=== PATIENT | female | born 1950 | race Caucasian/White ===

== ENCOUNTER → 2017-03-22 | Outpatient (REF) | payer OTHER ==
[~2017-03-22] MED LIST: HYDR25TAB PO; LEVO25TA34 PO; SIMV40TA2 PO; VALS1TAB46 PO
== END ==
LOC: M LAB REF 16:36
PROVIDERS: ATTEND Otolaryngology
DX: D48.5 Neoplasm of uncertain behavior of skin (principal)

== ENCOUNTER → 2017-05-09 | Outpatient (CLI) | payer OTHER ==
[2017-05-09 13:31] LABS: MEAN CORPUSCULAR HEMOGLOBIN 33.7 pg (27.0-33.0); MEAN CORPUSCULAR HGB CONC 33.1 g/dl (32.0-36.5); MEAN CORPUSCULAR VOLUME 101.8 fl (80.0-96.0); RED CELL DISTRIBUTION WIDTH 12.2 % (11.5-14.5); WHITE BLOOD COUNT 6.4 K/mm3 (4.0-10.0)
[2017-05-09 13:33] LABS: ALBUMIN 3.8 GM/DL (3.2-5.2); ALBUMIN/GLOBULIN RATIO 1.03 (1.00-1.93); ALKALINE PHOSPHATASE 68 U/L (45-117); ALT/SGPT 29 U/L (12-78); ANION GAP 8 MEQ/L (8-16); AST/SGOT 23 U/L (15-37); BILIRUBIN,TOTAL 0.5 MG/DL (0.2-1.0); BLOOD UREA NITROGEN 17 MG/DL (7-18); CALCIUM LEVEL 9.5 MG/DL (8.8-10.2); CARBON DIOXIDE LEVEL 27 MEQ/L (21-32); CHLORIDE LEVEL 103 MEQ/L (98-107); CHOLESTEROL LEVEL 159 MG/DL (<200); CREATININE FOR GFR 0.87 MG/DL (0.55-1.02); FREE T4 1.01 NG/DL (0.76-1.46); GLOMERULAR FILTRATION RATE > 60.0 (>45); GLUCOSE, FASTING 125 MG/DL (80-110); POTASSIUM SERUM 4.6 MEQ/L (3.5-5.1); SODIUM LEVEL 138 MEQ/L (136-145); TOTAL PROTEIN 7.5 GM/DL (6.4-8.2); TRIGLYCERIDES LEVEL 134 MG/DL (<150)
== END ==
LOC: M SMT 08:00
PROVIDERS: ATTEND Family Medicine
DX: E03.9 Hypothyroidism, unspecified (principal); E11.9 Type 2 diabetes mellitus without complications

== ENCOUNTER → 2017-05-31 | Outpatient (CLI) | payer OTHER ==
--- NOTE | 2017-05-31 11:13 | REPMRS ---
Patient History The patient states she had a clinical breast exam in 05/27 Patient is postmenopausal. Family history of breast cancer in sister at age 50 or over and breast cancer in sister at age 60. Reductions of both breasts, 1985. Took hormonal contraceptives for 6 years. Took estrogen for 30 years. Digital Woman Screen Mammo: May 31, 2017 - Exam #: [id number] Bilateral CC and MLO view(s) were taken. Technologist: Brenda Joel, Technologist Prior study comparison: May 30, 2016, digital woman screen mammo performed at [facility]. May 12, 2015, bilateral digital mammo screening bilat, performed at [facility]. May 04, 2014, bilateral bilat screen digital mammo, performed at [facility] ([facility] FINDINGS: There are scattered fibroglandular densities. There is a moderate amount of residual fibroglandular tissue which is fairly symmetric. There is no interval development of dominant mass, architectural distortion, or clustered microcalcification typical of malignancy. There has been no change in the appearance of the mammogram from the prior studies. ASSESSMENT: BI-RADS/ACR category 1 mammogram. Negative. Recommendation Routine screening mammogram of both breasts in 1 year (for women over age 40). This mammogram was interpreted with the aid of an FDA-approved computer-aided dectection system. Electronically Signed By: Carroll Street MD 05/31/17 [id number]
== END ==
LOC: M WHC 10:26
PROVIDERS: ATTEND Obstetrics & Gynecology
DX: Z12.31 Encounter for screening mammogram for malignant neoplasm of breast (principal); Z78.0 Asymptomatic menopausal state; Z80.3 Family history of malignant neoplasm of breast; Z92.0 Personal history of contraception

== ENCOUNTER → 2018-05-13 | Outpatient (CLI) | payer OTHER ==
[2018-05-13 13:04] LABS: BASO # 0.1 10^3/uL (0.0-0.2); BASO % 0.9 % (0.0-1.0); EOS # 0.1 10^3/uL (0.0-0.50); EOS % 1.6 % (0.0-3.0); HEMATOCRIT 39.4 % (36.0-47.0); HEMOGLOBIN 13.1 g/dl (12.0-15.5); IMMATURE GRANULOCYTE % 0.4 % (0-3.0); LYMPH # 1.8 10^3/uL (1.5-4.5); LYMPH % 31.9 % (24.0-44.0); MEAN CORPUSCULAR HEMOGLOBIN 32.6 pg (27.0-33.0); MEAN CORPUSCULAR HGB CONC 33.2 g/dl (32.0-36.5); MONO # 0.6 10^3/uL (0.0-0.8); MONO % 11.3 % (0.0-5.0); NEUTROPHILS % 53.9 % (36.0-66.0); PLATELET COUNT, AUTOMATED 271 10^3/uL (150-450); RED BLOOD COUNT 4.02 10^6/uL (4.00-5.40); RED CELL DISTRIBUTION WIDTH 11.9 % (11.5-14.5); WHITE BLOOD COUNT 5.5 10^3/uL (4.0-10.0)
[2018-05-13 13:35] LABS: ALBUMIN 3.9 GM/DL (3.2-5.2); ALBUMIN/GLOBULIN RATIO 1.05 (1.00-1.93); ALKALINE PHOSPHATASE 58 U/L (45-117); ALT/SGPT 37 U/L (12-78); ANION GAP 11 MEQ/L (8-16); AST/SGOT 28 U/L (7-37); BILIRUBIN,TOTAL 0.7 MG/DL (0.2-1.0); BLOOD UREA NITROGEN 16 MG/DL (7-18); CALCIUM LEVEL 9.3 MG/DL (8.8-10.2); CARBON DIOXIDE LEVEL 27 MEQ/L (21-32); CHLORIDE LEVEL 100 MEQ/L (98-107); CHOLESTEROL LEVEL 130 MG/DL (<200); CHOLESTEROL RISK RATIO 2.031 (<5); CREATININE FOR GFR 0.85 MG/DL (0.55-1.30); FREE T3 3.2 PG/ML (2.2-4.0); FREE T4 0.96 NG/DL (0.76-1.46); GLOMERULAR FILTRATION RATE > 60.0 (>39); GLUCOSE, FASTING 139 MG/DL (70-100); HDL CHOLESTEROL 64 MG/DL (>40); NON-HDL-C 66 MG/DL; POTASSIUM SERUM 4.3 MEQ/L (3.5-5.1); SODIUM LEVEL 138 MEQ/L (136-145); TOTAL PROTEIN 7.6 GM/DL (6.4-8.2); TRIGLYCERIDES LEVEL 145 MG/DL (<150)
[2018-05-13 13:39] LABS: MALB URINE SIEMENS 22.9 MG/L; MAU/CREAT RATIO 14.5 MCG/MG (0.0-30.0)
[2018-05-13 13:46] LABS: ESTIMATED AVERAGE GLUCOSE 140 MG/DL (60-110); HEMOGLOBIN A1c 6.5 %
== END ==
LOC: M SMT 08:02
DX: E03.9 Hypothyroidism, unspecified (principal); E11.9 Type 2 diabetes mellitus without complications
CPT/HCPCS: 84443

== ENCOUNTER → 2018-06-02 | Outpatient (CLI) | payer OTHER | LOC: M WHC 10:53 | DX: Z12.31 Encounter for screening mammogram for malignant neoplasm of breast (principal) | CPT/HCPCS: 77067 ==

== ENCOUNTER → 2019-06-04 | Outpatient (CLI) | payer MEDICARE ==
[~2019-06-04] MED LIST changes: +HYDR-2541 PO; -HYDR25TAB PO; -VALS1TAB46 PO; +VALS1TAB66 PO
--- NOTE | 2019-06-04 11:21 | REPMRS ---
Patient History The patient states she has not had a clinical breast exam in over a year. Family history of breast cancer at age 60 in sister. Benign lumpectomy of the left breast, 1987. Reductions of both breasts, 1984. Took hormonal contraceptives for 6 years. Took estrogen for 30 years. 3D TOMOSYNTHESIS WAS PERFORMED. The [facility] lifetime risk for breast cancer is 4.5%. Digital Mammo Screening Bilat: June 04, 2019 - Exam #: [id number] Bilateral CC and MLO view(s) were taken. Technologist: Maci Crane, Technologist Prior study comparison: June 02, 2018, bilateral digital woman screen mammo, performed at [facility]. May 31, 2017, digital woman screen mammo, performed at [facility]. FINDINGS: The breast tissue is heterogeneously dense. This may lower the sensitivity of mammography. There has been no change in the appearance of the mammogram from the prior studies. There is a moderate amount of residual fibroglandular tissue which is fairly symmetric. There is no interval development of dominant mass, areas of architectural distortion, or clustered microcalcification typical of malignancy. Assessment: BI-RADS/ACR category 1 mammogram. Negative Mammogram. Recommendation Routine screening mammogram in 1 year (for women over age 40). This mammogram was interpreted with the aid of an FDA-approved computer-aided dectection system. Electronically Signed By: Charles Serrano MD 06/04/19 [id number]
== END ==
LOC: M RAD 08:39
PROVIDERS: ATTEND Family Medicine
DX: Z12.31 Encounter for screening mammogram for malignant neoplasm of breast (principal); Z80.3 Family history of malignant neoplasm of breast; Z92.0 Personal history of contraception; Z92.23 Personal history of estrogen therapy

== ENCOUNTER → 2019-06-25 | Outpatient (CLI) | payer MEDICARE ==
[2019-06-25 11:15] LABS: BASO # 0.1 10^3/uL (0.0-0.2); BASO % 0.9 % (0.0-1.0); EOS # 0.2 10^3/uL (0.0-0.50); EOS % 2.2 % (0.0-3.0); HEMATOCRIT 39.8 % (36.0-47.0); HEMOGLOBIN 13.1 g/dl (12.0-15.5); LYMPH # 2.3 10^3/uL (1.5-4.5); LYMPH % 34.3 % (24.0-44.0); MEAN CORPUSCULAR HEMOGLOBIN 32.3 pg (27.0-33.0); MEAN CORPUSCULAR HGB CONC 32.9 g/dl (32.0-36.5); MONO # 0.6 10^3/uL (0.0-0.8); MONO % 9.6 % (0.0-5.0); NEUTROPHILS # 3.5 10^3/uL (1.8-7.7); NEUTROPHILS % 52.9 % (36.0-66.0); PLATELET COUNT, AUTOMATED 266 10^3/uL (150-450); RED BLOOD COUNT 4.06 10^6/uL (4.00-5.40); WHITE BLOOD COUNT 6.7 10^3/uL (4.0-10.0)
[2019-06-25 11:41] LABS: ALBUMIN 3.8 GM/DL (3.2-5.2); ALT/SGPT 32 U/L (12-78); BILIRUBIN,TOTAL 0.5 MG/DL (0.2-1.0); BLOOD UREA NITROGEN 14 MG/DL (7-18); CALCIUM LEVEL 9.4 MG/DL (8.8-10.2); CARBON DIOXIDE LEVEL 27 MEQ/L (21-32); CHLORIDE LEVEL 101 MEQ/L (98-107); CHOLESTEROL LEVEL 157 MG/DL (<200); CHOLESTEROL RISK RATIO 2.573 (<5); CREATININE FOR GFR 0.92 MG/DL (0.55-1.30); FREE T4 1.03 NG/DL (0.76-1.46); GLOMERULAR FILTRATION RATE > 60.0 (>39); GLUCOSE, FASTING 161 MG/DL (70-100); HDL CHOLESTEROL 61 MG/DL (>40); LDL CHOLESTEROL 68 MG/DL (<100); NON-HDL-C 96 MG/DL; POTASSIUM SERUM 4.5 MEQ/L (3.5-5.1); SODIUM LEVEL 137 MEQ/L (136-145); TOTAL PROTEIN 7.2 GM/DL (6.4-8.2); TRIGLYCERIDES LEVEL 138 MG/DL (<150)
[2019-06-25 12:20] LABS: MALB URINE SIEMENS 20.8 MG/L; MAU/CREAT RATIO 11.5 MCG/MG (0.0-30.0)
[2019-06-25 13:33] LABS: HEMOGLOBIN A1c 7.7 %
== END ==
LOC: M SMT 08:03
PROVIDERS: ATTEND Family Medicine
DX: E03.9 Hypothyroidism, unspecified (principal); E11.9 Type 2 diabetes mellitus without complications

== ENCOUNTER → 2019-07-21 | Outpatient (CLI) | payer MEDICARE ==
--- NOTE | 2019-07-21 13:10 | REP ---
CAROTID ULTRASOUND: Real-time ultrasound evaluation and duplex Doppler interrogation of the extracranial carotid vascular is performed. Moderate plaquing and narrowing is seen of the carotid bulbs and internal carotid arteries. There is elevated peak systolic velocity and ICA to CCA ratio of the left internal carotid artery, consistent with stenosis 60-79%. Luminal narrowing of the right internal carotid artery is most consistent with degree less than 50%. There is normal direction of flow in both vertebral arteries. RIGHT LEFT Peak systolic velocity ICA 123 cm/s 224 cm/s End diastolic velocity ICA 18.0 26.7 Peak systolic velocity CCA 108 103 Peak systolic velocity ECA 153 295 ICA/CCA ratio 1.1 2.2 IMPRESSION: Moderate plaquing and narrowing of bilateral carotid bulbs and internal carotid arteries, left greater than right. There are findings compatible with stenosis of the left internal carotid artery 60-79% with luminal narrowing right ICA less than 50%. Electronically Signed by Charles Serrano MD 07/22/2019 11:19 A
== END ==
LOC: M RAD 11:51
PROVIDERS: ATTEND Surgery Vascular Surgery
DX: I65.23 Occlusion and stenosis of bilateral carotid arteries (principal)

== ENCOUNTER → 2019-08-28 | Outpatient (REF) | payer MEDICARE | LOC: M LAB REF 15:26 | PROVIDERS: ATTEND Otolaryngology | DX: L72.0 Epidermal cyst (principal) ==

== ENCOUNTER → 2020-01-14 | Outpatient (CLI) | payer MEDICARE ==
[~2020-01-14] MED LIST changes: -SIMV40TA2 PO; +SIMV40TA20 PO
--- NOTE | 2020-01-14 11:34 | REP ---
CAROTID ULTRASOUND: Real-time ultrasound evaluation and duplex Doppler interrogation of the extracranial carotid vasculature is performed and compared to a prior study of 07/21/2019. Once again, there is moderate to moderately severe plaquing and narrowing in both carotid bulbs and internal and external carotid arteries. There is again elevated peak systolic velocity in the left internal carotid artery consistent with stenosis 60-79%. There is no elevation of the peak systolic velocity in the right internal carotid artery compatible with luminal narrowing less than 50%. There is normal direction of flow in both vertebral arteries. RIGHT LEFT Peak systolic velocity ICA 109.0 cm/s 195.0 cm/s End diastolic velocity ICA 28.0 cm/s 32.7 cm/s Peak systolic velocity CCA 95.9 cm/s 98.5 cm/s Peak systolic velocity ECA 129.0 cm/s 106.0 cm/s ICA/CCA ratio 1.1 1.9 IMPRESSION: Stable exam. No change in left ICA stenosis 60-79%. Electronically Signed by Charles Serrano MD 01/14/2020 08:05 P
== END ==
LOC: M RAD 09:51
PROVIDERS: ATTEND Surgery Vascular Surgery
DX: I65.23 Occlusion and stenosis of bilateral carotid arteries (principal)

== ENCOUNTER → 2020-03-23 | Outpatient (CLI) | payer MEDICARE ==
[2020-03-23 10:14] LABS: HEMOGLOBIN 12.7 g/dl (12.0-15.5); MEAN CORPUSCULAR HEMOGLOBIN 32.9 pg (27.0-33.0); MEAN CORPUSCULAR HGB CONC 32.6 g/dl (32.0-36.5); PLATELET COUNT, AUTOMATED 267 10^3/uL (150-450); RED BLOOD COUNT 3.86 10^6/uL (4.00-5.40); WHITE BLOOD COUNT 6.2 10^3/uL (4.0-10.0)
[2020-03-23 10:43] LABS: HEMOGLOBIN A1c 7.7 %
[2020-03-23 10:51] LABS: MALB URINE SIEMENS 21.1 MG/L; MAU/CREAT RATIO 16.1 MCG/MG (0.0-30.0)
[2020-03-23 10:56] LABS: ALBUMIN 3.9 GM/DL (3.2-5.2); BILIRUBIN,TOTAL 0.5 MG/DL (0.2-1.0); CALCIUM LEVEL 9.2 MG/DL (8.8-10.2); CHOLESTEROL RISK RATIO 2.622 (<5); CREATININE FOR GFR 0.98 MG/DL (0.55-1.30); GLOMERULAR FILTRATION RATE 59.4 (>39); POTASSIUM SERUM 4.1 MEQ/L (3.5-5.1); THYROID STIMULATING HORMONE 2.84 uIU/ML (0.358-3.740); THYROXINE (T4) 7.4 UG/DL (4.5-12.0); TOTAL PROTEIN 7.4 GM/DL (6.4-8.2)
[2020-03-23 10:57] LABS: TOTAL T3 124.1 NG/DL (60.0-181.0)
== END ==
LOC: M PLALAB 08:07
PROVIDERS: ATTEND Family Medicine
DX: E03.9 Hypothyroidism, unspecified (principal); E11.9 Type 2 diabetes mellitus without complications

== ENCOUNTER → 2020-06-15 | Outpatient (CLI) | payer MEDICARE ==
--- NOTE | 2020-07-05 15:43 | REPMRS ---
Patient History The patient states she has not had a clinical breast exam in over a year. Patient is postmenopausal. Family history of breast cancer at age 60 in sister. Benign lumpectomy of the left breast, 1987. Reductions of both breasts, 1984. Took hormonal contraceptives for 6 years. Took estrogen for 30 years. Digital Woman Screen Mammo: June 15, 2020 - Exam #: [id number] Bilateral CC and MLO view(s) were taken. Technologist: Sandy Alvarez, Technologist Prior study comparison: June 04, 2019, bilateral digital mammo screening bilat, performed at [facility]. June 02, 2018, bilateral digital woman screen mammo performed at [facility]. May 31, 2017, digital woman screen mammo performed at [facility]. FINDINGS: There are scattered fibroglandular densities. The Volpara volumetric breast density category is:B. Multiple surgical clips are again noted in the right breast. There has been no change in the appearance of the mammogram from the prior studies. There is a mild amount of scattered fibroglandular density which is fairly symmetric. There is no interval development of dominant mass, architectural distortion, or grouped microcalcification suggestive of malignancy. 3-D tomosynthesis shows no additional findings. Assessment: BI-RADS/ACR category 2 mammogram. Benign Findings. Recommendation Routine screening mammogram of both breasts in 1 year (for women over age 40). This patient's Lifetime Breast Cancer Risk is estimated at 4.3 %. This mammogram was interpreted with the aid of an FDA-approved computer-aided dectection system. Electronically Signed By: Carroll Street MD 07/05/20 [id number]
== END ==
LOC: M WHC 17:07
PROVIDERS: ATTEND Family Medicine
DX: Z12.31 Encounter for screening mammogram for malignant neoplasm of breast (principal); Z78.0 Asymptomatic menopausal state; Z80.3 Family history of malignant neoplasm of breast; Z92.0 Personal history of contraception; Z86.018 Personal history of other benign neoplasm

== ENCOUNTER → 2020-07-27 | Outpatient (CLI) | payer MEDICARE ==
--- NOTE | 2020-08-12 13:11 | REP ---
DUPLEX CAROTID SONOGRAPHY: HISTORY: Carotid stenosis. COMPARISON: Carotid sonography 01/14/20. SONOGRAPHIC FINDINGS: Antegrade flow is observed in the left vertebral artery. Partial reversal of flow is observed in the right vertebral artery, question of developing right subclavian stenosis. This is a new finding. RIGHT CAROTID: The right common carotid artery shows soft plaquing and diffuse intimal thickening. There is mixed plaquing in the bulb, proximal ICA, and proximal ECA on the right side on 2D scanning. Color flow on spectral Doppler interrogation shows normal waveforms and velocities today, essentially unchanged from the prior study. VELOCITY CHART RIGHT CAROTID: Right CCA PSV: 91 cm/s Right ICA PSV: 84 EDV: 22 Right ECA PSV: 107 Right ICA/CCA Ratio: Normal 0.9 IMPRESSION: Less than 50% category narrowing in the right ICA by Doppler velocity criteria. Doppler velocities have not increased since the prior study in the right carotid. LEFT CAROTID: The left common carotid artery shows diffuse soft plaquing. There is moderate mixed plaquing in the bulb proximal ICA and proximal ECA. Stenotic flow velocity is observed in the external carotid artery today on the left. Normal wave forms and velocities are achieved in the ICA on the left today. VELOCITY CHART LEFT CAROTID: Left CCA PSV: 86 cm/s Left ICA PSV: 121 EDV: 19 Left ECA PSV: 244 Left ICA/CCA Ratio: 1.4 IMPRESSION: Less than 50% category stenosis in the left ICA probably near the upper portion of this range. ICA Doppler velocities are decreased compared to the prior study. MTDD
== END ==
LOC: M RAD 10:12
PROVIDERS: ATTEND Surgery Vascular Surgery
DX: I65.23 Occlusion and stenosis of bilateral carotid arteries (principal)

== ENCOUNTER → 2020-10-03 | Outpatient (CLI) | payer MEDICARE ==
[2020-10-03 10:45] LABS: HEMATOCRIT 44.2 % (36.0-47.0); HEMOGLOBIN 14.6 g/dl (12.0-15.5); MEAN CORPUSCULAR VOLUME 96.9 fl (80.0-96.0); PLATELET COUNT, AUTOMATED 244 10^3/uL (150-450); RED BLOOD COUNT 4.56 10^6/uL (4.00-5.40); WHITE BLOOD COUNT 7.1 10^3/uL (4.0-10.0)
[2020-10-03 12:04] LABS: CREATININE, URINE 26.4 MG/DL; MALB URINE SIEMENS 37.9 MG/L; MAU/CREAT RATIO 143.5 MCG/MG (0.0-30.0)
[2020-10-03 14:21] LABS: HEMOGLOBIN A1c 12.9 %
[2020-10-03 15:11] LABS: ALT/SGPT 26 U/L (12-78); BILIRUBIN,TOTAL 0.7 MG/DL (0.2-1.0); BLOOD UREA NITROGEN 24 MG/DL (7-18); CALCIUM LEVEL 10.3 MG/DL (8.8-10.2); CARBON DIOXIDE LEVEL 21 MEQ/L (21-32); CHLORIDE LEVEL 95 MEQ/L (98-107); CHOLESTEROL LEVEL 192 MG/DL (<200); CHOLESTEROL RISK RATIO 4.923 (<5); CREATININE FOR GFR 1.37 MG/DL (0.55-1.30); FREE T3 2.3 PG/ML (2.2-4.0); FREE T4 1.16 NG/DL (0.76-1.46); GLOMERULAR FILTRATION RATE 40.3 (>39); GLUCOSE, FASTING 502 MG/DL (70-100); HDL CHOLESTEROL 39 MG/DL (>40); NON-HDL-C 153 MG/DL; POTASSIUM SERUM 4.5 MEQ/L (3.5-5.1); SODIUM LEVEL 134 MEQ/L (136-145); TOTAL PROTEIN 8.3 GM/DL (6.4-8.2); TRIGLYCERIDES LEVEL 592 MG/DL (<150)
== END ==
LOC: M PLALAB 07:59
PROVIDERS: ATTEND Family Medicine
DX: E11.9 Type 2 diabetes mellitus without complications (principal); E03.9 Hypothyroidism, unspecified

== ENCOUNTER 2020-10-07 11:31 | Inpatient (IN) | payer MEDICARE ==
[~2020-10-07] VITALS: Ht 162.6 cm; Wt 98.0 kg
[2020-10-07] MEDS ORDERED: METF-838 PO (11:44)
[2020-10-07] MEDS ORDERED: LOSA25TA14 PO (11:46)
[2020-10-07 12:27] LABS: VENOUS BASE EXCESS -12.6 (-2.0-2.0); VENOUS HCO3 12.7 MEQ/L (23.0-27.0); VENOUS O2 SATURATION 99.1 % (60.0-80.0); VENOUS PARTIAL PRESSURE CO2 28.4 mmHg (38.0-50.0); VENOUS PARTIAL PRESSURE O2 171.3 mmHg (30.0-50.0); VENOUS PH 7.269 UNITS (7.330-7.430); VENOUS STANDARD HCO3 14.9 MEQ/L; VENOUS TOTAL CO2 13.6 MEQ/L (24.0-28.0)
[2020-10-07] MEDS ORDERED: LABETALOL 100MG/20ML VIAL IV STA (12:27)
[2020-10-07] MEDS ORDERED: HumuLIN R (REGULAR) INSULIN (NovoLIN R) **100U/ML** PER UNIT IV ONE (12:30)
[2020-10-07 12:40] LABS: BASO # 0.1 10^3/uL (0.0-0.2); BASO % 0.7 % (0.0-1.0); EOS % 0.5 % (0.0-3.0); HEMATOCRIT 43.2 % (36.0-47.0); HEMOGLOBIN 13.8 g/dl (12.0-15.5); LYMPH # 2.4 10^3/uL (1.5-5.0); LYMPH % 32.6 % (24.0-44.0); MEAN CORPUSCULAR HEMOGLOBIN 31.4 pg (27.0-33.0); MEAN CORPUSCULAR HGB CONC 31.9 g/dl (32.0-36.5); MEAN CORPUSCULAR VOLUME 98.2 fl (80.0-96.0); MONO # 0.6 10^3/uL (0.0-0.8); MONO % 8.4 % (0.0-5.0); NEUTROPHILS # 4.2 10^3/uL (1.5-8.5); NEUTROPHILS % 57.1 % (36.0-66.0); PLATELET COUNT, AUTOMATED 270 10^3/uL (150-450); WHITE BLOOD COUNT 7.4 10^3/uL (4.0-10.0)
[2020-10-07] MEDS ORDERED: INSULIN REGULAR IN 0.9 % NACL 100 UNIT in IV 1 EA IV SCH ×2 (12:49)
[2020-10-07 12:50] LABS: HEMOGLOBIN A1c 13.2 %
[2020-10-07] MEDS ORDERED: INSULIN IV RATE CHANGE DOCUMENTATION ML/HR XX SCH (13:00)
[2020-10-07] MEDS ORDERED: NS 1,000 ML IV ONE (13:15)
[2020-10-07] MEDS ORDERED: HYDR25TAB PO (13:42)
[2020-10-07 13:54] LABS: OSMOLALITY SERUM 342 MOSM/KG (280-301)
[2020-10-07 14:05] LABS: ALBUMIN 3.9 GM/DL (3.2-5.2); ALT/SGPT 23 U/L (12-78); BILIRUBIN,DIRECT 0.1 MG/DL (0.0-0.2); BILIRUBIN,TOTAL 0.6 MG/DL (0.2-1.0); BLOOD UREA NITROGEN 35 MG/DL (7-18); CALCIUM LEVEL 10.9 MG/DL (8.8-10.2); CARBON DIOXIDE LEVEL 15 MEQ/L (21-32); CHLORIDE LEVEL 97 MEQ/L (98-107); CREATININE FOR GFR 1.49 MG/DL (0.55-1.30); GLOMERULAR FILTRATION RATE 36.6 (>39); GLUCOSE, FASTING 569 MG/DL (70-100); LIPASE 227 U/L (73-393); POTASSIUM SERUM 5.3 MEQ/L (3.5-5.1); SODIUM LEVEL 131 MEQ/L (136-145); TOTAL PROTEIN 8.3 GM/DL (6.4-8.2)
[2020-10-07 14:06] LABS: ACETONE/KETONE > 46.00 MG/DL (<2.81)
--- NOTE | 2020-10-07 15:13 | HPEPDOC ---
[facility] Medical History & Physical Date of Admission Oct 07, 2020 Date of Service: Oct 07, 2020 History and Physical CHIEF COMPLAINT: fatigue, polydipsia, polyuria HISTORY OF PRESENT ILLNESS: 70 yo F presented to ER with c/o fatigue, and severe polydipsia and polyuria that she has noticed for the past month. She reports th at she was recently diagnosed with DM2 by her PCP, and her BG was > 500 two days ago, with a reported A1c > 13. She takes metformin 500 mg BID. She is not aware of any other PMHx. She has a poor understanding of diabetes. She denies any prior diagnoses of DM2, and states that she has not experiences polyuria and polydipsia in the past. She denies nausea, vomiting, chest pain, SOB, palpitations, blurred vision. On arrival to ED, BG 603. BHB>42. Further, she was found to be in hypertensive urgency with BP 198/81. Will be admitted to ICU for management of HHS. Insulin drip. PAST MEDICAL HISTORY: 1. DM2 2. HTN 3. Hyperlipidema PAST SURGICAL HISTORY: Reviewed with patient. Denies prior surgical history. SOCIAL HISTORY: former smoker, quit 30 years ago. 30 pack year hx denies etoh use denies illicit drug use FAMILY HISTORY: Reports diabetes in grandmother ALLERGIES: Please see below. REVIEW OF SYSTEMS: CONSTITUTIONAL: Fatigue HEENT: patient denies blurred vision, loss of vision, headache,. CARDIOVASCULAR: patient denies chest pain, palpitations. RESPIRATORY: patient denies shortness of breath, cough, hemoptysis. GASTROINTESTINAL: patient denies abdominal pain, n/v/d, blood in stool. GENITOURINARY: patient denies dysuria, discharge. SKIN: patient denies rashes. MUSCULOSKELETAL: patient denies joint pain, neck pain. NEUROLOGICAL: patient denies focal weakness, numbness, seizures. PSYCHIATRIC: patient denies SI/HI. ENDOCRINE: Patient reports severe polyuria and polydipsia HEMATOLOGIC/LYMPHATIC: patient denies easy bruising. HOME MEDICATIONS: Please see below. PHYSICAL EXAMINATION: VITAL SIGNS: please see below General: Obese, comfortable HEENT: PERRLA, EOMI, sclerae clear Neck: supple, normal ROM, no JVD Respiratory: lungs CTAB, no wheeze, no rales, no crackles CVS: RRR, normal S1, S2, no murmurs Abdo: soft, no masses, no hepatosplenomegaly, BS+, no rebound tenderness Extremities: no edema, pulses 2+ MSK: no joint deformities, normal ROM Neuro: no focal neuro deficits, moving all 4 extremities, CN2-12 intact. Strength 5/5 in all 4 extremities. No nystagmus. Psych: calm, cooperative, AAO x 3 LABORATORY DATA: See below. MICROBIOLOGY: Please see below. ASSESSMENT: 70 yo F with a hx of newly diagnosed DM2, HTN, hyperlipidemia, admitted to ICU for management of HHS on insulin drip. . PLAN #HHS: ph 7.27. BG>600. AG 19. Insulin drip. BMP Mg Phos q4h. K 5.3 on admission. IVF D5-1/2NS when BG< 300. Transition to SC insulin (weight based) as insulin naive once BG<250, AG closes, able to tolerate PO. At least 30 minute overlap of SC insulin with insulin drip. UA not suggestive of infection. check blood cultures. Check CXR. RVP pending. #HTN urgnency: asymptomatic. BP normalized. Hold losartan while FLAKITO. Resume hydrochlorothiazide in the morning. #FLAKITO: Cr. 1.49. C/w IVF. AVoid nephrotoxins. #HLD: resume simvastatin 40 mg PO daily. DVT ppx: lovenox Vital Signs Vital Signs Date Time Temp Pulse Resp B/P (MAP) Pulse Ox O2 Delivery O2 Flow Rate FiO2 10/07/20 14:49 176/78 (110) 10/07/20 14:46 93 10/07/20 14:31 98 10/07/20 11:32 96.2 18 Room Air Laboratory Data Labs 24H Laboratory Tests 2 10/07/20 11:55: Immature Granulocyte % (Auto) 0.7, Neutrophils (%) (Auto) 57.1, Lymphocytes (%) (Auto) 32.6, Monocytes (%) (Auto) 8.4H, Eosinophils (%) (Auto) 0.5, Basophils (%) (Auto) 0.7, Neutrophils # (Auto) 4.2, Lymphocytes # (Auto) 2.4, Monocytes # (Auto) 0.6, Eosinophils # (Auto) 0.0, Basophils # (Auto) 0.1, Nucleated Red Blood Cells % (auto) 0.0, Estimated Mean Plasma Glucose 332H, Hemoglobin A1c 13.2 10/07/20 12:07: Urine Color STRAW, Urine Appearance CLEAR, Urine pH 5.0, Urine Specific Andrews 1.022, Urine Protein NEGATIVE, Urine Glucose (UA) 3+H, Urine Ketones 2+H, Urine Blood NEGATIVE, Urine Nitrite NEGATIVE, Urine Bilirubin NEGATIVE, Urine Urobilinogen 0.2, Urine Leukocyte Esterase NEGATIVE, Urine WBC (Auto) 0, Urine RBC (Auto) 0, Urine Hyaline Casts (Auto) 0, Urine Bacteria (Auto) NEGATIVE, Urine Squamous Epithelial Cells 1, Urine Mucus (Auto) SMALL, Urine Sperm (Auto) , Blood Gas Bicarbonate Standard 14.9, Venous Blood pH 7.269L, Venous Blood Partial Pressure CO2 28.4L, Venous Blood Partial Pressure O2 171.3H, Venous Blood Total Carbon Dioxide 13.6L, Venous Blood HCO3 12.7L, Venous Blood Oxygen Saturation 99.1H, Venous Blood Base Excess -12.6L 10/07/20 13:11: Anion Gap 19H, Glomerular Filtration Rate 36.6L, Osmolality 342H, Calcium Level 10.9H, Total Bilirubin 0.6, Direct Bilirubin 0.1, Aspartate Amino Transf (AST/SGOT) 19, Alanine Aminotransferase (ALT/SGPT) 23, Alkaline Phosphatase 70, Total Protein 8.3H, Albumin 3.9, Albumin/Globulin Ratio 0.9L, Lipase 227, B- Hydroxybutyrate > 46.00H 10/07/20 13:33: Bedside Glucose (Misc Panel) 467H 10/07/20 14:42: Bedside Glucose (Misc Panel) 368H CBC/BMP Laboratory Tests 10/07/20 11:55 10/07/20 13:11 Microbiology Microbiology 10/07/20 Respiratory Virus Panel (PCR) ([facility]) - Final, Complete Home Medications Scheduled Hydrochlorothiazide (Hydrochlorothiazide) 25 Mg Tablet, 25 MG PO DAILY Insulin Glargine,Hum.rec.anlog (Lantus Solostar) 100 Unit/1 Ml Insuln.pen, 30 UNIT SC QAM Insulin Lispro (Humalog Kwikpen U-200) 200 Unit/1 Ml Insuln.pen, 20 UNIT SC AC Levothyroxine Sodium (Levoxyl) 25 Mcg Tab, 25 MCG PO DAILY Losartan Potassium (Losartan Potassium) 25 Mg Tablet, 25 MG PO DAILY Metformin HCl (Metformin HCl ER) 500 Mg Tab.er.24h, 500 MG PO QPM Simvastatin (Simvastatin) 40 Mg Tab, 40 MG PO DAILY Scheduled PRN Polyethylene Glycol 3350 (Miralax) 119 Gm Powder, 17 GRAM PO DAILY PRN for CONSTIPATION dissolve in water Allergies Coded Allergies: No Known Allergies (Unverified , 10/07/20) A-FIB/CHADSVASC A-FIB History Current/History of A-Fib/PAF?: No Current PO Anticoag Therapy: No SANDRA MOSER MD Oct 07, 2020 15:13
[2020-10-07] MEDS: D5W/0.45% SODIUM CHLORIDE 1,000 ML IV SCH ×2 (15:29→19:46)
[2020-10-07] MEDS ORDERED: MOM 30ML SUSPENSION UDC PO PRN (15:30)
[2020-10-07] MEDS ORDERED: MAALOX 30 ML SUSP *UDC PO PRN (15:30)
[2020-10-07] MEDS ORDERED: ACETAMINOPHEN TAB 650MG DOSE (2X325MG) PO PRN (15:30)
[2020-10-07] MEDS ORDERED: DEXTROSE 50% 50 ML SYRINGE IV PRN (15:45)
[2020-10-07] MEDS ORDERED: GLUCAGON INJ 1MG VIAL SC PRN (15:45)
[2020-10-07] MEDS ORDERED: GLUCOSE 4GM CHEW TABLET PO PRN (15:45)
[2020-10-07] MEDS: INSULIN REGULAR IN 0.9 % NACL 100 UNIT in IV 1 EA IV SCH ×4 (16:55→22:31)
[2020-10-07 16:56] LABS: CREATININE FOR GFR 1.41 MG/DL (0.55-1.30); POTASSIUM SERUM 5.1 MEQ/L (3.5-5.1)
[2020-10-07 18:35] LABS: CALCIUM LEVEL 9.6 MG/DL (8.8-10.2); CREATININE FOR GFR 1.36 MG/DL (0.55-1.30); GLOMERULAR FILTRATION RATE 40.7 (>39); MAGNESIUM LEVEL 1.7 MG/DL (1.8-2.4); PHOSPHORUS LEVEL 3.4 MG/DL (2.5-4.9); POTASSIUM SERUM 4.3 MEQ/L (3.5-5.1)
--- NOTE | 2020-10-07 19:21 | ECGEPIP ---
[facility] - ED Test Date: 2020-10-07 Pat Name: VALERIE FRASER Department: Room: - Gender: Female [place]: ROGE : [id number] Requested By: Edmond Powell Order Number: [id number] Reading MD: Edmond Powell Measurements Intervals [place] Rate: 92 P: 57 MD: 174 QRS: 21 QRSD: 88 T: -2 QT: 341 QTc: 423 Interpretive Statements SINUS RHYTHM NONSPECIFIC ST T WAVE CHANGES DELAYED R WAVE PROGRESSION NO PRIOR ECG FOR COMPARISON Electronically Signed on 10-07-2020 19:21:13 EST by Edmond Powell
[2020-10-07 20:00] VITALS: BP 120/72
[2020-10-07 20:33] LABS: CREATININE FOR GFR 1.36 MG/DL (0.55-1.30); GLOMERULAR FILTRATION RATE 40.7 (>39); POTASSIUM SERUM 3.4 MEQ/L (3.5-5.1)
[2020-10-07] MEDS: ENOXAPARIN 40MG/0.4ML SYRINGE (J1650 PER 10MG) SC SCH (21:01)
[2020-10-07] MEDS: DOCUSATE SODIUM 100 MG CAP PO SCH (21:01)
[2020-10-07] MEDS: PANTOPRAZOLE 40MG VIAL (C9113 PER 1) IV SCH (21:01)
[2020-10-07] MEDS: INSULIN IV RATE CHANGE DOCUMENTATION ML/HR XX SCH (21:53)
[2020-10-07 22:35] LABS: CALCIUM LEVEL 9.1 MG/DL (8.8-10.2); CREATININE FOR GFR 1.34 MG/DL (0.55-1.30); GLOMERULAR FILTRATION RATE 41.4 (>39); MAGNESIUM LEVEL 1.6 MG/DL (1.8-2.4); POTASSIUM SERUM 3.3 MEQ/L (3.5-5.1)
[2020-10-07] MEDS: KCL 10MEQ IN D5/0.45NS 1000ML 1,000 ML IV SCH (23:03)
[2020-10-08] VITALS (7 sets, daily range): BP systolic 100–156; BP diastolic 52–91
[2020-10-08] MEDS: INSULIN IV RATE CHANGE DOCUMENTATION ML/HR XX SCH ×6 (01:10→09:04)
[2020-10-08] MEDS: KCL 10MEQ IN D5/0.45NS 1000ML 1,000 ML IV SCH ×3 (02:57→06:54)
[2020-10-08 02:59] LABS: CALCIUM LEVEL 8.7 MG/DL (8.8-10.2); CREATININE FOR GFR 1.2 MG/DL (0.55-1.30); MAGNESIUM LEVEL 1.5 MG/DL (1.8-2.4); PHOSPHORUS LEVEL 2.6 MG/DL (2.5-4.9)
[2020-10-08] MEDS ORDERED: KCL 10MEQ/100ML SWI (KRUN) 10 MEQ in IV 1 EA IV SCH (03:00)
[2020-10-08] MEDS: POTASSIUM CHLORIDE 10 MEQ SR TABLET PO ONE ×2 (03:38→03:55)
[2020-10-08] MEDS: MAG SULF 1GM/100ML (MAG RUN) 1 GM in IV 1 EA IV SCH ×3 (04:00→05:59)
[2020-10-08] MEDS: LEVOTHYROXINE 25MCG TABLET (0.025MG) PO SCH (05:59)
[2020-10-08 06:29] LABS: BASO # 0.1 10^3/uL (0.0-0.2); BASO % 0.9 % (0.0-1.0); EOS # 0.2 10^3/uL (0.0-0.5); EOS % 3.5 % (0.0-3.0); HEMATOCRIT 35.7 % (36.0-47.0); LYMPH # 2.1 10^3/uL (1.5-5.0); LYMPH % 37.5 % (24.0-44.0); MEAN CORPUSCULAR HEMOGLOBIN 32.3 pg (27.0-33.0); MEAN CORPUSCULAR HGB CONC 33.6 g/dl (32.0-36.5); MONO # 0.6 10^3/uL (0.0-0.8); NEUTROPHILS # 2.6 10^3/uL (1.5-8.5); NEUTROPHILS % 46.7 % (36.0-66.0); PLATELET COUNT, AUTOMATED 220 10^3/uL (150-450); RED BLOOD COUNT 3.72 10^6/uL (4.00-5.40); WHITE BLOOD COUNT 5.7 10^3/uL (4.0-10.0)
[2020-10-08 07:00] LABS: ALBUMIN 2.8 GM/DL (3.2-5.2); BILIRUBIN,TOTAL 0.5 MG/DL (0.2-1.0); CALCIUM LEVEL 8.8 MG/DL (8.8-10.2); CREATININE FOR GFR 1.1 MG/DL (0.55-1.30); MAGNESIUM LEVEL 2.4 MG/DL (1.8-2.4); POTASSIUM SERUM 3.8 MEQ/L (3.5-5.1); TOTAL PROTEIN 5.8 GM/DL (6.4-8.2)
--- NOTE | 2020-10-08 08:06 | REP ---
INDICATION: dka COMPARISON: None. TECHNIQUE: Portable AP view of the chest FINDINGS: The cardiac silhouette appears mildly enlarged. The lung clements are clear without acute consolidation, effusion, or pneumothorax. Skeletal structures are intact. IMPRESSION: Mild cardiomegaly. Chronic changes without acute consolidation or effusion. <Electronically signed by Roberto Means > 10/08/20 0883
[2020-10-08] MEDS ORDERED: LEVEMIR (INSULIN DETEMIR) 1 UNITS/0.01ML SC SCH (09:00)
[2020-10-08] MEDS: DOCUSATE SODIUM 100 MG CAP PO SCH ×2 (09:00→20:32)
[2020-10-08] MEDS: hydroCHLOROthiazide 25 MG TAB PO SCH (09:05)
[2020-10-08] MEDS: SIMVASTATIN 40 MG TAB PO SCH (09:05)
[2020-10-08] MEDS: LOSARTAN 25 MG TAB PO SCH (09:05)
[2020-10-08] MEDS: HumaLOG INSULIN (NovoLOG) PER UNIT SC SCH ×4 (09:06→18:30)
[2020-10-08 09:40] LABS: ABG BASE EXCESS -4.4 (-2.0-2.0); ABG HCO3 20.1 MEQ/L (22.0-26.0); ABG PARTIAL PRESSURE CO2 35.1 mmHg (35.0-45.0); ABG PARTIAL PRESSURE O2 86.8 mmHg (75.0-100.0); ABG STANDARD HCO3 20.8 MEQ/L (22.0-26.0); ABG TOTAL CO2 21.1 MEQ/L (23.0-31.0); ABG pH (ARTERIAL) 7.375 UNITS (7.350-7.450)
[2020-10-08] MEDS ORDERED: LANC30MI XX (11:00)
[2020-10-08] MEDS ORDERED: LANTINJ4 SC (11:00)
[2020-10-08] MEDS ORDERED: GLUC1TES2 XX (11:00)
[2020-10-08] MEDS ORDERED: PEN1MIS22 SC (11:00)
[2020-10-08] MEDS ORDERED: HUMA50IN4 SC ×2 (11:00→16:50)
[2020-10-08] MEDS ORDERED: ALCOPAD25 TOP (11:00)
--- NOTE | 2020-10-08 11:33 | DS.PDOC ---
Discharge Summary General Date of Admission Oct 07, 2020 at 15:28 Date of Discharge 10/08/20 Discharge Summary PROCEDURES PERFORMED DURING STAY: [None]. ADMITTING DIAGNOSES: 1. HHS 2. HTN urgency 3. FLAKITO 4. HLD DISCHARGE DIAGNOSES: 1. HHS 2. HTN urgency 3. FLAKITO 4. HLD COMPLICATIONS/CHIEF COMPLAINT: Hyperosmolar Hyperglycemic State. HISTORY OF PRESENT ILLNESS: 70 yo F presented to ER with c/o fatigue, and severe polydipsia and polyuria that she has noticed for the past month. She reports that she was recently diagnosed with DM2 by her PCP, and her BG was > 500 two days ago, with a reported A1c > 13. She was started on metformin 500 mg BID. She is not aware of any other PMHx. She has a poor understanding of diabetes. She denies any prior diagnoses of DM2, and states that she has not experiences polyuria and polydipsia in the past. She denies nausea, vomiting, chest pain, SOB, palpitations, blurred vision. On arrival to ED, BG 603. BHB>42. Further, she was found to be in hypertensive urgency with BP 198/81, which normalized after 20 mg IV labetalol in the ER. Was admitted to ICU for management of HHS and BP control HOSPITAL COURSE: Patient was admitted to ICU with insulin drip as well as IV fluids. Initially normal saline followed by D5 half normal saline. Potassium was added to replace losses. Once patient's blood sugars dropped below 300, her anion gap closed and her pH was above 7.3, she was transitioned to subcutaneous weight-based insulin regimen and insulin drip was discontinued after 30 minutes of subcutaneous insulin administration. Patient was able to tolerate consistent carbohydrate diet. Patient was educated on importance of glycemic control. Primary care follow-up as well as referral to podiatry and ophthalmology. Patient's blood pressure was controlled throughout the admission and her home medications of losartan and hydrochlorothiazide were resumed. Patient has appropriate prescriptions for weight-based subcutaneous insulin which included Lantus 20 units every morning as well as Humalog 10 units for meals. She was instructed to follow-up with her primary care doctor closely. Patient understood and verbalized instructions. DISCHARGE MEDICATIONS: Please see below. ALLERGIES: Please see below. PHYSICAL EXAMINATION ON DISCHARGE: VITAL SIGNS: Please see below. General: Obese, comfortable HEENT: PERRLA, EOMI, sclerae clear Neck: supple, normal ROM, no JVD Respiratory: lungs CTAB, no wheeze, no rales, no crackles CVS: RRR, normal S1, S2, no murmurs Abdo: soft, no masses, no hepatosplenomegaly, BS+, no rebound tenderness Extremities: no edema, pulses 2+ MSK: no joint deformities, normal ROM Neuro: no focal neuro deficits, moving all 4 extremities, CN2-12 intact. Strength 5/5 in all 4 extremities. No nystagmus. Psych: calm, cooperative, AAO x 3 LABORATORY DATA: Please see below. IMAGING: FINDINGS: The cardiac silhouette appears mildly enlarged. The lung clements are clear without acute consolidation, effusion, or pneumothorax. Skeletal structures are intact. IMPRESSION: Mild cardiomegaly. Chronic changes without acute consolidation or effusion. PROGNOSIS: Good ACTIVITY: [As tolerated]. DIET: Consistent carbohydrate DISCHARGE PLAN: Follow-up with primary care doctor within 3-5 days. Continue with initial weight-based insulin regimen of Lantus 20 units in the morning as well as Humalog 10 units prior to each meal. Patient reported that she has a glucometer at home insulin pen needles and additional diabetic supplies were p rovided. Patient was educated on management of diabetes, complications and warning signs for hypoglycemia. DISCHARGE INSTRUCTIONS: . Please follow-up with your primary care doctor within 3-5 days . Please taking medications as prescribed. You have been started on insulin for the first time. They state 30 units of long-acting Lantus in the morning as well as 20 units of the short acting Humalog 15-20 minutes before each meal. Please use sliding scale insulin as well as described in the rubric provided to you. Monitor sugars 4 times a day once at mealtime and once before going to bed. . If you develop light headedness, shortness of breath, fatigue bleeding, chest pain, shortness of breath, seizures, nausea, fevers, or otherwise worsening of your symptoms, please call 911 or return to the nearest emergency room ITEMS TO FOLLOWUP ON ON OUTPATIENT: 1. Please obtain outpatient echo given cardiomegaly seen on CXR and hypertensive urgency. 2. Please provide referral for ophthalmology 3. Please provide referral for podiatry DISCHARGE CONDITION: Stable TIME SPENT ON DISCHARGE: 35 minutes Vital Signs/I&Os Vital Signs Date Time Temp Pulse Resp B/P (MAP) Pulse Ox O2 Delivery O2 Flow Rate FiO2 10/08/20 09:05 156/68 10/08/20 04:00 96.9 72 17 96 Room Air I&O- Last 24 Hours up to 6 AM 10/08/20 06:00 Intake Total 3296 ml Output Total 650 ml Balance 2646 ml Laboratory Data Labs 24H Laboratory Tests 2 10/07/20 11:38: Bedside Glucose (Misc Panel) 554*H 10/07/20 11:55: Immature Granulocyte % (Auto) 0.7, Neutrophils (%) (Auto) 57.1, Lymphocytes (%) (Auto) 32.6, Monocytes (%) (Auto) 8.4H, Eosinophils (%) (Auto) 0.5, Basophils (%) (Auto) 0.7, Neutrophils # (Auto) 4.2, Lymphocytes # (Auto) 2.4, Monocytes # (Auto) 0.6, Eosinophils # (Auto) 0.0, Basophils # (Auto) 0.1, Nucleated Red Blood Cells % (auto) 0.0, Estimated Mean Plasma Glucose 332H, Hemoglobin A1c 13.2 10/07/20 12:07: Urine Color STRAW, Urine Appearance CLEAR, Urine pH 5.0, Urine Specific [place] 1.022, Urine Protein NEGATIVE, Urine Glucose (UA) 3+H, Urine Ketones 2+H, Urine Blood NEGATIVE, Urine Nitrite NEGATIVE, Urine Bilirubin NEGATIVE, Urine Urobilinogen 0.2, Urine Leukocyte Esterase NEGATIVE, Urine WBC (Auto) 0, Urine RBC (Auto) 0, Urine Hyaline Casts (Auto) 0, Urine Bacteria (Auto) NEGATIVE, Urine Squamous Epithelial Cells 1, Urine Mucus (Auto) SMALL, Urine Sperm (Auto) , Blood Gas Bicarbonate Standard 14.9, Venous Blood pH 7.269L, Venous Blood Partial Pressure CO2 28.4L, Venous Blood Partial Pressure O2 171.3H, Venous Blood Total Carbon Dioxide 13.6L, Venous Blood HCO3 12.7L, Venous Blood Oxygen Saturation 99.1H, Venous Blood Base Excess -12.6L 10/07/20 12:18: POC Glucose (Misc Panel) 603*H, POC Sodium (Misc Panel) 130L, POC Potassium (Misc Panel) 7.8*H, POC Chloride (Misc Panel) 102, POC Total CO2 (Misc Panel) 16.0L, POC Blood Urea Nitrogen (Misc Panel 51H, POC Ionized Calcium (Misc Panel) 5.1, POC Creatinine (Misc Panel) 0.9, POC Hematocrit (Misc Panel) 46.0 10/07/20 13:11: Anion Gap 19H, Glomerular Filtration Rate 36.6L, Osmolality 342H, Calcium Level 10.9H, Total Bilirubin 0.6, Direct Bilirubin 0.1, Aspartate Amino Transf (AST/SGOT) 19, Alanine Aminotransferase (ALT/SGPT) 23, Alkaline Phosphatase 70, Total Protein 8.3H, Albumin 3.9, Albumin/Globulin Ratio 0.9L, Lipase 227, B- Hydroxybutyrate > 46.00H 10/07/20 13:33: Bedside Glucose (Misc Panel) 467H 10/07/20 14:42: Bedside Glucose (Misc Panel) 368H 10/07/20 15:19: Anion Gap 15, Glomerular Filtration Rate 39.0, Calcium Level 10.0 10/07/20 15:41: Bedside Glucose (Misc Panel) 288H 10/07/20 16:42: Bedside Glucose (Misc Panel) 337H 10/07/20 17:43: Bedside Glucose (Misc Panel) 294H 10/07/20 18:00: Anion Gap 12, Glomerular Filtration Rate 40.7, Calcium Level 9.6, Phosphorus Level 3.4, Magnesium Level 1.7L 10/07/20 18:50: Bedside Glucose (Misc Panel) 323H 10/07/20 19:57: Bedside Glucose (Misc Panel) 287H 10/07/20 19:58: Anion Gap 9, Glomerular Filtration Rate 40.7, Calcium Level 10.0 10/07/20 21:00: Bedside Glucose (Misc Panel) 262H 10/07/20 21:51: Bedside Glucose (Misc Panel) 246H 10/07/20 21:52: Anion Gap 7L, Glomerular Filtration Rate 41.4, Calcium Level 9.1, Phosphorus Level 3.0, Magnesium Level 1.6L 10/07/20 23:04: Bedside Glucose (Misc Panel) 233H 10/08/20 00:03: Bedside Glucose (Misc Panel) 235H 10/08/20 01:09: Bedside Glucose (Misc Panel) 256H 10/08/20 02:04: Bedside Glucose (Misc Panel) 214H 10/08/20 02:18: Anion Gap 8, Glomerular Filtration Rate 47.0, Calcium Level 8.7L, Phosphorus Level 2.6, Magnesium Level 1.5L 10/08/20 02:54: Bedside Glucose (Misc Panel) 207H 10/08/20 04:00: Bedside Glucose (Misc Panel) 213H 10/08/20 05:04: Bedside Glucose (Misc Panel) 261H 10/08/20 06:00: Bedside Glucose (Misc Panel) 224H 10/08/20 06:16: Immature Granulocyte % (Auto) 0.4, Neutrophils (%) (Auto) 46.7, Lymphocytes (%) (Auto) 37.5, Monocytes (%) (Auto) 11.0H, Eosinophils (%) (Auto) 3.5H, Basophils (%) (Auto) 0.9, Neutrophils # (Auto) 2.6, Lymphocytes # (Auto) 2.1, Monocytes # (Auto) 0.6, Eosinophils # (Auto) 0.2, Basophils # (Auto) 0.1, Nucleated Red Blood Cells % (auto) 0.0, Anion Gap 7L, Glomerular Filtration Rate 52.0, Calcium Level 8.8, Magnesium Level 2.4, Total Bilirubin 0.5, Aspartate Amino Transf (AST/SGOT) 22, Alanine Aminotransferase (ALT/SGPT) 19, Alkaline Phosphatase 47, Total Protein 5.8#L, Albumin 2.8#L, Albumin/Globulin Ratio 0.9L 10/08/20 06:57: Bedside Glucose (Misc Panel) 232H 10/08/20 08:04: Bedside Glucose (Misc Panel) 224H 10/08/20 09:02: Bedside Glucose (Misc Panel) 193H 10/08/20 09:27: Blood Gas Bicarbonate Standard 20.8L, Arterial Blood pH 7.375, Arterial Blood Partial Pressure CO2 35.1, Arterial Blood Partial Pressure O2 86.8, Arterial Blood Total CO2 21.1L, Arterial Blood HCO3 20.1L, Arterial Blood Base Excess - 4.4L, Arterial Blood Oxygen Saturation 97.0 10/08/20 09:44: Bedside Glucose (Misc Panel) 230H CBC/BMP Laboratory Tests 10/07/20 11:55 10/07/20 13:11 10/07/20 15:19 10/07/20 18:00 10/07/20 19:58 10/07/20 21:52 10/08/20 02:18 10/08/20 06:16 FSBS Laboratory Tests Test 10/07/20 11:38 10/07/20 13:33 10/07/20 14:42 10/07/20 15:41 Range/Units Bedside Glucose (Misc Panel) 554 467 368 288 83-110 MG/DL Test 10/07/20 16:42 10/07/20 17:43 10/07/20 18:50 10/07/20 19:57 Range/Units Bedside Glucose (Misc Panel) 337 294 323 287 83-110 MG/DL Test 10/07/20 21:00 10/07/20 21:51 10/07/20 23:04 10/08/20 00:03 Range/Units Bedside Glucose (Misc Panel) 262 246 233 235 83-110 MG/DL Test 10/08/20 01:09 10/08/20 02:04 10/08/20 02:54 10/08/20 04:00 Range/Units Bedside Glucose (Misc Panel) 256 214 207 213 83-110 MG/DL Test 10/08/20 05:04 10/08/20 06:00 10/08/20 06:57 10/08/20 08:04 Range/Units Bedside Glucose (Misc Panel) 261 224 232 224 83-110 MG/DL Test 10/08/20 09:02 10/08/20 09:44 Range/Units Bedside Glucose (Misc Panel) 193 230 83-110 MG/DL Microbiology Microbiology 10/07/20 Blood Culture, Received Pending 10/07/20 Respiratory Virus Panel (PCR) ([facility]) - Final, Complete Discharge Medications Scheduled Hydrochlorothiazide (Hydrochlorothiazide) 25 Mg Tablet, 25 MG PO DAILY, (Reported) Insulin Glargine,Hum.rec.anlog (Lantus Solostar) 100 Unit/1 Ml Insuln.pen, 30 UNIT SC QAM Insulin Lispro (Humalog Kwikpen U-200) 200 Unit/1 Ml Insuln.pen, 20 UNIT SC AC Levothyroxine Sodium (Levoxyl) 25 Mcg Tab, 25 MCG PO DAILY, (Reported) Losartan Potassium (Losartan Potassium) 25 Mg Tablet, 25 MG PO DAILY, (Reported) Metformin HCl (Metformin HCl ER) 500 Mg Tab.er.24h, 500 MG PO QPM, (Reported) Simvastatin (Simvastatin) 40 Mg Tab, 40 MG PO DAILY, (Reported) Scheduled PRN Polyethylene Glycol 3350 (Miralax) 119 Gm Powder, 17 GRAM PO DAILY PRN for CONSTIPATION dissolve in water Allergies Coded Allergies: No Known Allergies (Unverified , 10/07/20) SANDRA MOSER MD Oct 08, 2020 11:33
[2020-10-08 12:28] LABS: BLOOD UREA NITROGEN 14 MG/DL (7-18); CALCIUM LEVEL 8.7 MG/DL (8.8-10.2); CARBON DIOXIDE LEVEL 20 MEQ/L (21-32); CHLORIDE LEVEL 106 MEQ/L (98-107); CREATININE FOR GFR 1.03 MG/DL (0.55-1.30); GLOMERULAR FILTRATION RATE 56.1 (>39); GLUCOSE, FASTING 241 MG/DL (70-100); POTASSIUM SERUM 4.3 MEQ/L (3.5-5.1); SODIUM LEVEL 133 MEQ/L (136-145)
[2020-10-08 13:06] LABS: CHOLESTEROL LEVEL 181 MG/DL (<200); CHOLESTEROL RISK RATIO 5.484 (<5); HDL CHOLESTEROL 33 MG/DL (>40); NON-HDL-C 148 MG/DL; TRIGLYCERIDES LEVEL 545 MG/DL (<150)
[2020-10-08 13:46] LABS: HEMOGLOBIN A1c 13.9 %
[2020-10-08] MEDS: PANTOPRAZOLE 40MG VIAL (C9113 PER 1) IV SCH (20:31)
[2020-10-08] MEDS: ENOXAPARIN 40MG/0.4ML SYRINGE (J1650 PER 10MG) SC SCH (20:33)
[2020-10-08] MEDS ORDERED: HumaLOG INSULIN (NovoLOG) PER UNIT SC SCH (21:00)
[2020-10-09] MEDS: LEVOTHYROXINE 25MCG TABLET (0.025MG) PO SCH (05:42)
[2020-10-09 06:00] VITALS: BP 152/65
[2020-10-09 07:07] LABS: BASO # 0.1 10^3/uL (0.0-0.2); EOS # 0.2 10^3/uL (0.0-0.5); EOS % 3.7 % (0.0-3.0); HEMATOCRIT 35.8 % (36.0-47.0); HEMOGLOBIN 12.1 g/dl (12.0-15.5); LYMPH % 41.9 % (24.0-44.0); MEAN CORPUSCULAR HEMOGLOBIN 32.9 pg (27.0-33.0); MEAN CORPUSCULAR HGB CONC 33.8 g/dl (32.0-36.5); MEAN CORPUSCULAR VOLUME 97.3 fl (80.0-96.0); MONO # 0.6 10^3/uL (0.0-0.8); MONO % 11.4 % (0.0-5.0); NEUTROPHILS % 41.8 % (36.0-66.0); PLATELET COUNT, AUTOMATED 191 10^3/uL (150-450); RED BLOOD COUNT 3.68 10^6/uL (4.00-5.40); WHITE BLOOD COUNT 4.8 10^3/uL (4.0-10.0)
[2020-10-09 07:22] LABS: ALBUMIN 2.7 GM/DL (3.2-5.2); ALT/SGPT 23 U/L (12-78); BILIRUBIN,TOTAL 0.4 MG/DL (0.2-1.0); BLOOD UREA NITROGEN 17 MG/DL (7-18); CALCIUM LEVEL 8.5 MG/DL (8.8-10.2); CARBON DIOXIDE LEVEL 20 MEQ/L (21-32); CHLORIDE LEVEL 106 MEQ/L (98-107); CREATININE FOR GFR 0.91 MG/DL (0.55-1.30); GLOMERULAR FILTRATION RATE > 60.0 (>39); GLUCOSE, FASTING 328 MG/DL (70-100); MAGNESIUM LEVEL 1.8 MG/DL (1.8-2.4); POTASSIUM SERUM 4.2 MEQ/L (3.5-5.1); SODIUM LEVEL 133 MEQ/L (136-145); TOTAL PROTEIN 6.5 GM/DL (6.4-8.2)
[2020-10-09] MEDS: HumaLOG INSULIN (NovoLOG) PER UNIT SC SCH ×4 (08:15→11:51)
[2020-10-09] MEDS: hydroCHLOROthiazide 25 MG TAB PO SCH (08:16)
[2020-10-09 08:17] VITALS: BP 145/68
[2020-10-09] MEDS: SIMVASTATIN 40 MG TAB PO SCH (08:17)
[2020-10-09] MEDS: LOSARTAN 25 MG TAB PO SCH (08:17)
[2020-10-09] MEDS: DOCUSATE SODIUM 100 MG CAP PO SCH (08:17)
[2020-10-09] MEDS ORDERED: LEVEMIR (INSULIN DETEMIR) 1 UNITS/0.01ML SC SCH (09:00)
--- NOTE | 2020-10-09 10:35 | IPNPDOC ---
Date Seen The patient was seen on 10/09/20. Progress Note SUBJECTIVE: Patient was seen and examined at bedside. Doing well overnight. Constipation. Sugars were elevated overnight. Patient is symptomatically. Insulin regimen was adjusted accordingly. Patient is afebrile. Denies chest pain, seizures of breath, fevers, chills, nausea, vomiting. OBJECTIVE PHYSICAL EXAMINATION: VITAL SIGNS: please see below General: NAD, comfortable HEENT: PERRLA, EOMI, sclerae clear Neck: supple, normal ROM, no JVD Respiratory: lungs CTAB, no wheeze, no rales, no crackles CVS: RRR, normal S1, S2, no murmurs Abdo: soft, no masses, no hepatosplenomegaly, BS+, no rebound tenderness Extremities: no edema, pulses 2+ MSK: no joint deformities, normal ROM Neuro: no focal neuro deficits, moving all 4 extremities, CN2-12 intact. Strength 5/5 in all 4 extremities. No nystagmus. Psych: calm, cooperative, AAO x 3 LABORATORY DATA, IMAGING STUDIES, MICROBIOLOGY: Please see below. DVT prophylaxis ordered?: Yes ASSESSMENT AND PLAN: 70-year-old female with history of hypertension, hyperlipidemia and newly diagnosed diabetes and admitted to ICU for management of HHS. PROBLEMS: Please refer to discharge summary from 10/09/20 For additional information. Patient sugars were elevated overnight, increased insulin dosage accordingly. Basal Levemir/lantus 30 units as well 20 units of Humalog 3 times a day before meals. Sliding scale insulin has also been provided. Patient will be discharged on a subcutaneous insulin regimen including basal dosing as well as mealtime. Provided with education on management of diabetes. Patient has blood glucose monitoring supplies at home. Patient has been instructed to follow up closely with primary care doctor in order to titrate insulin appropriately. Education about signs of hypoglycemia were also provided. VS, I&O, 24H, Fishbone Vital Signs/I&O Vital Signs Date Time Temp Pulse Resp B/P (MAP) Pulse Ox O2 Delivery O2 Flow Rate FiO2 10/09/20 08:17 145/68 10/09/20 06:00 97.0 77 18 98 Room Air I&O- Last 24 Hours up to 6 AM 10/09/20 06:00 Intake Total 952 ml Output Total 1000 ml Balance -48 ml Laboratory Data 24H LABS Laboratory Tests 2 10/08/20 11:14: Bedside Glucose (Misc Panel) 254H 10/08/20 11:53: Anion Gap 7L, Glomerular Filtration Rate 56.1, Calcium Level 8.7L, Triglycerides Level 545H, Total Cholesterol 181, LDL Cholesterol , Non-HDL Cholesterol (LDL + VLDL) 148, Total HDL Cholesterol 33L, Cholesterol/HDL Ratio 5.484H 10/08/20 11:58: Bedside Glucose (Misc Panel) 213H 10/08/20 16:31: Bedside Glucose (Misc Panel) 372H 10/08/20 18:27: Bedside Glucose (Misc Panel) 383H 10/08/20 19:40: Bedside Glucose (Misc Panel) 437H 10/09/20 06:14: Bedside Glucose (Misc Panel) 277H 10/09/20 06:47: Immature Granulocyte % (Auto) 0.2, Neutrophils (%) (Auto) 41.8, Lymphocytes (%) (Auto) 41.9, Monocytes (%) (Auto) 11.4H, Eosinophils (%) (Auto) 3.7H, Basophils (%) (Auto) 1.0, Neutrophils # (Auto) 2.0, Lymphocytes # (Auto) 2.0, Monocytes # (Auto) 0.6, Eosinophils # (Auto) 0.2, Basophils # (Auto) 0.1, Nucleated Red Blood Cells % (auto) 0.0, Anion Gap 7L, Glomerular Filtration Rate > 60.0, Calcium Level 8.5L, Magnesium Level 1.8, Total Bilirubin 0.4, Aspartate Amino Transf (AST/SGOT) 39H, Alanine Aminotransferase (ALT/SGPT) 23, Alkaline Phosphatase 49, Total Protein 6.5, Albumin 2.7L, Albumin/Globulin Ratio 0.7L CBC/BMP Laboratory Tests 10/08/20 11:53 10/09/20 06:47 Microbiology Microbiology 10/07/20 Blood Culture - Preliminary, Resulted No growth after 24 hours . All specim... 10/07/20 Respiratory Virus Panel (PCR) ([facility]) - Final, Complete CORALNSANDRA BIRMINGHAM MD Oct 09, 2020 10:35
[2020-10-09] MEDS ORDERED: MIRA3350 PO (11:27)
[2020-10-09] MEDS ORDERED: HUMA100I5 SC (11:27)
[2020-10-09] MEDS ORDERED: MIRALAX *UNIT DOSE* 17GM PACKET PO SCH (11:30)
[2020-10-09] MEDS ORDERED: HUMA50IN4 SC (11:32)
[2020-10-09] MEDS ORDERED: LANTINJ4 SC (11:32)
== END 2020-10-09 16:00 | disposition home or self-care (01) | DRG 638 ==
LOC: M ED 11:31 → M ED INP 15:28 → ENRESERV 17:24 → M ICU 19:30 → M MS5PR 10-08 18:42
PROVIDERS: ADMIT Family Medicine; ATTEND Family Medicine
DX: E11.00 Type 2 diabetes mellitus with hyperosmolarity without nonketotic hyperglycemic-hyperosmolar coma (NKHHC) (principal); N17.9 Acute kidney failure, unspecified; I16.0 Hypertensive urgency; E78.5 Hyperlipidemia, unspecified; I10 Essential (primary) hypertension; Z87.891 Personal history of nicotine dependence; Z79.84 Long term (current) use of oral hypoglycemic drugs; Z79.899 Other long term (current) drug therapy; Z20.828 Contact with and (suspected) exposure to other viral communicable diseases

== ENCOUNTER 2020-10-10 15:54 | Emergency (ER) | payer MEDICARE ==
[~2020-10-10] VITALS: Ht 162.6 cm; Wt 95.5 kg
[~2020-10-10 15:54] MED LIST changes: +ALCOPAD25 TOP; +GLUC1TES2 XX; +HUMA100I5 SC; +HUMA50IN4 SC; +HYDR25TAB PO; +LANC30MI XX; +LANTINJ4 SC; +LOSA25TA14 PO; +METF-838 PO; +MIRA3350 PO; +PEN1MIS22 SC
[2020-10-10] MEDS ORDERED: DICYCLOMINE 10 MG CAP PO ONE (17:15)
--- NOTE | 2020-10-10 18:17 | REP ---
INDICATION: constipation, no BM x 1wk. COMPARISON: None. FINDINGS: KUB shows the intestinal gas pattern to be nonspecific. The organ silhouettes insofar as delineated are unremarkable. There is no evidence of free intraperitoneal air. IMPRESSION: Nonspecific. <Electronically signed by Buster Ziegler > 10/10/20 [id number]
[2020-10-10 19:04] VITALS: BP 138/60
== END 2020-10-10 19:10 | disposition home or self-care (01) ==
LOC: M ED 15:54
DX: K59.00 Constipation, unspecified (principal); E11.9 Type 2 diabetes mellitus without complications; I10 Essential (primary) hypertension; E78.5 Hyperlipidemia, unspecified; Z79.899 Other long term (current) drug therapy; Z79.4 Long term (current) use of insulin

== ENCOUNTER → 2020-12-20 | Outpatient (CLI) | payer MEDICARE ==
[~2020-12-20] MED LIST changes: +HYDR-3490 PO; -HYDR25TAB PO
[2020-12-20 10:54] LABS: HEMATOCRIT 39.7 % (36.0-47.0); HEMOGLOBIN 12.5 g/dl (12.0-15.5); MEAN CORPUSCULAR HEMOGLOBIN 31.2 pg (27.0-33.0); MEAN CORPUSCULAR HGB CONC 31.5 g/dl (32.0-36.5); PLATELET COUNT, AUTOMATED 283 10^3/uL (150-450); RED BLOOD COUNT 4.01 10^6/uL (4.00-5.40); WHITE BLOOD COUNT 6.9 10^3/uL (4.0-10.0)
[2020-12-20 11:25] LABS: HEMOGLOBIN A1c 7.4 %
[2020-12-20 11:33] LABS: ALT/SGPT 32 U/L (12-78); BILIRUBIN,TOTAL 0.4 MG/DL (0.2-1.0); BLOOD UREA NITROGEN 22 MG/DL (7-18); CALCIUM LEVEL 10.3 MG/DL (8.8-10.2); CARBON DIOXIDE LEVEL 29 MEQ/L (21-32); CHLORIDE LEVEL 103 MEQ/L (98-107); CREATININE FOR GFR 0.94 MG/DL (0.55-1.30); FREE T3 2.5 PG/ML (2.2-4.0); FREE T4 0.88 NG/DL (0.76-1.46); GLOMERULAR FILTRATION RATE > 60.0 (>39); GLUCOSE, FASTING 151 MG/DL (70-100); POTASSIUM SERUM 4.6 MEQ/L (3.5-5.1); SODIUM LEVEL 139 MEQ/L (136-145); TOTAL PROTEIN 7.5 GM/DL (6.4-8.2)
== END ==
LOC: M PLALAB 08:05
PROVIDERS: ATTEND Family Medicine
DX: E11.9 Type 2 diabetes mellitus without complications (principal); E03.9 Hypothyroidism, unspecified

== ENCOUNTER → 2021-04-14 | Outpatient (CLI) | payer MEDICARE ==
--- NOTE | 2021-04-14 12:37 | REP ---
INDICATION: OCCLUSION AND STENOSIS COMPARISON: 07/27/2020 TECHNIQUE: Serrano scale and color Doppler evaluation using linear high frequency transducer Findings: FINDINGS: Two-dimensional serrano scale and color images demonstrate mixed atheromatous plaquing (left greater than right). There is a history of prior right endarterectomy given. Visible narrowing noted through the left carotid bulb and distal common carotid artery. Color Doppler interrogation demonstrates bilateral arterial wave patterns with elements of bilateral spectral broadening. Dampened flow is suggested through the right vertebral artery. Left vertebral artery appears normal. ICA peak systolic velocity: Right 86.9 cm/s; Left 161.0 cm/s ICA diastolic velocity: Right 26.6 cm/s; Left 25.0 cm/s ECA peak systolic velocity: Right 106 cm/s; Left 159 cm/s CCA peak systolic velocity: Right 73.9 cm/s; Left 94.9 cm/s ICA/CCA ratio: Right 1.2 cm/s; Left 1.7 cm/s IMPRESSION: 1. Narrowing through the left carotid bulb in the 50-69% range. <Electronically signed by Roberto Means > 04/14/21 [id number]
== END ==
LOC: M RAD 10:58
PROVIDERS: ATTEND Surgery Vascular Surgery
DX: I65.23 Occlusion and stenosis of bilateral carotid arteries (principal)

== ENCOUNTER → 2021-06-19 | Outpatient (CLI) | payer MEDICARE ==
[~2021-06-19] MED LIST changes: +LOSA25TA13 PO; -LOSA25TA14 PO
[2021-06-19 10:38] LABS: HEMATOCRIT 40.5 % (36.0-47.0); HEMOGLOBIN 13.4 g/dl (12.0-15.5); MEAN CORPUSCULAR HEMOGLOBIN 32.3 pg (27.0-33.0); MEAN CORPUSCULAR HGB CONC 33.1 g/dl (32.0-36.5); MEAN CORPUSCULAR VOLUME 97.6 fl (80.0-96.0); PLATELET COUNT, AUTOMATED 257 10^3/uL (150-450); RED BLOOD COUNT 4.15 10^6/uL (4.00-5.40); WHITE BLOOD COUNT 6.5 10^3/uL (4.0-10.0)
[2021-06-19 11:33] LABS: ALBUMIN 4.1 GM/DL (3.2-5.2); BILIRUBIN,TOTAL 0.6 MG/DL (0.2-1.0); CALCIUM LEVEL 10.3 MG/DL (8.8-10.2); CREATININE FOR GFR 1.01 MG/DL (0.55-1.30); FREE T3 2.7 PG/ML (2.2-4.0); FREE T4 0.94 NG/DL (0.76-1.46); GLOMERULAR FILTRATION RATE 57.2 (>39); POTASSIUM SERUM 4.5 MEQ/L (3.5-5.1); THYROID STIMULATING HORMONE 2.41 uIU/ML (0.358-3.740); TOTAL PROTEIN 7.4 GM/DL (6.4-8.2)
[2021-06-19 13:07] LABS: HEMOGLOBIN A1c 6.7 %
== END ==
LOC: M PLALAB 07:47
PROVIDERS: ATTEND Family Medicine
DX: E03.9 Hypothyroidism, unspecified (principal); E11.9 Type 2 diabetes mellitus without complications

== ENCOUNTER → 2021-06-26 | Outpatient (CLI) | payer MEDICARE ==
[~2021-06-26] MED LIST changes: -LOSA25TA13 PO; +LOSA25TA14 PO
--- NOTE | 2021-06-26 11:08 | REP ---
INDICATION: Z12.39 SCREENING MAMMO. COMPARISON: Multiple TECHNIQUE: Digital screening mammography was carried out bilaterally in the CC and MLO projections using both 2D and 3D modalities and compared to the prior exams. By history, the patient has no complaints of a palpable breast abnormality or other significant breast complaints. FINDINGS: The breasts are unchanged in size and shape. There are no ye soft tissue densities or spiculated masses. There is no ye internal architectural distortion. Patient is status post benign right breast lumpectomy. In the upper outer quadrant of the right breast there is a new grouping of calcifications. Other calcifications are seen bilaterally, however, these are stable and have a benign appearance. The Volpara volumetric breast density pattern is b. IMPRESSION: BIRADS/ACR category 0 mammogram. There is a new grouping of calcifications in the right breast upper outer quadrant for which diagnostic digital magnified spot compression views are recommended in the CC and true lateral projections. This patient's Tyrer-Cuzick lifetime breast cancer risk assessment score is 4%. This mammogram was interpreted with the aid of an FDA-approved computer-aided detection system. The patient states she had a clinical breast exam in over a year. The patient letter being requested is M0. RECOMMENDATION: As above <Electronically signed by Buster Ziegler > 06/26/21 [id number]
== END ==
LOC: M WHC 09:56
PROVIDERS: ATTEND Family Medicine
DX: Z12.31 Encounter for screening mammogram for malignant neoplasm of breast (principal); R92.1 Mammographic calcification found on diagnostic imaging of breast

== ENCOUNTER → 2021-07-31 | Outpatient (CLI) | payer MEDICARE ==
--- NOTE | 2021-07-31 10:16 | REP ---
INDICATION: ADDL VIEWS R BREAST. COMPARISON: Multiple TECHNIQUE: Diagnostic digital magnified spot-compression views right breast CC and MLO projections over grouping of calcifications seen on the prior screening examination of 06/26/2021 FINDINGS: In the upper outer quadrant of the right breast the grouping of calcifications seen on the prior screening examination vary somewhat in size, shape, radiographic density. IMPRESSION: BIRADS/ACR category 4 mammogram. Right breast calcifications as described above for which stereotactic biopsy is recommended. The patient letter being requested is M4. RECOMMENDATION: As above <Electronically signed by Buster Ziegler > 07/31/21 [id number]
== END ==
LOC: M WHC 07:49
PROVIDERS: ATTEND Family Medicine
DX: R92.2 Inconclusive mammogram (principal)

== ENCOUNTER → 2021-08-23 | Outpatient (CLI) | payer MEDICARE ==
[2021-08-23 11:54] VITALS: BP 148/76
--- NOTE | 2021-08-27 19:07 | ROOPDOC ---
[facility] Report Of Operation Report of Operation DATE OF PROCEDURE: 08/23/21 DIAGNOSIS: Right breast suspicious calcifications PROCEDURE: Right breast stereotactic biopsy with clip placement SURGEON: Rula Frost BLOOD LOSS: minimal Lidocaine 1% LOT [id number] Expiration 02/2024 Sodium Bicarbonate 8.4% LOT [id number] Expiration 12/2021 Hydromark clip LOT [id number] Expiration 12/2023 SHAPE : 1 Bx device: Stereotactic Mammotome Revolve Dual Vacuum- assisted Biopsy System 10 G LOT [id number] Expiration 01/2024 REF [id number] Informed consent was obtained in the preop area. The most common risk and possible complications including bleeding, hematoma, bruising, infection, injury to surrounding structures were explained to the patient and patient expressed understanding. Patient was taken to the procedure room and placed prone on the [facility] Breast Biopsy table with the right breast hanging through the table opening. Right breast was placed into Cranio-Caudal compression and Security Supervisor jeovany images were taken. Suspicious calcifications were identified on the jeovany images and target was set. CC approach from the bottom was chosen for this procedure. At this time, since we were able to confirm visibility of the suspicious calcifications and patient tolerated prone positioning allowing to proceed with the biopsy, appropriate time out was done stating patients name, date of , and the procedure to be performed. The right breast in CC compression was prepped in the usual fashion. Plain Lidocaine 1% and 8.4% sodium bicarbonate 10:1 mix was used to anesthetize the skin, the biopsy site and tissues along the anticipated biopsy tract. Small skin incision was made with blade number 11. Mammotome 10 G stereotactic breast biopsy device was inserted through the incision and advanced to the previously set coordinates marking the target lesion. Pre-fire imaging was taken to assure appropriate positioning. At this time, Mammotome 10 G breast biopsy device was fired and six vacuum assisted biopsies were collected. The biopsy samples were investigated with [email or web address] system and calcifications were observed. Biopsy samples were then placed in the formaldehyde, marked with patients name and right breast biopsy site, and sent to pathology for evaluation. SHAPE 1 Hydromark clip was placed into the Mammotome biopsy device channel and deployed. Post-deployment imaging was done to assure appropriate clip deployment. Clip was noted in the right breast. At this point, paddle CC compression of the right breast was released and manual pressure was held to decrease harmonic effect and to assure hemostasis. No bleeding was noted upon removal of the pressure. Patient was slowly repositioned and placed into sitting position, and then assisted off the table. Post-biopsy mammogram of the right breast was obtained and showed clip in expected position. Postprocedural dressing was placed. Patient tolerated procedure well and was taken to the recovery unit in stable condition. Discharge instructions were discussed with the patient and patient expressed understanding. RULA FROST DO Aug 27, 2021 19:07
== END ==
LOC: M WHCPRO 07:24
PROVIDERS: ATTEND Surgery
DX: D24.1 Benign neoplasm of right breast (principal); N63.11 Unspecified lump in the right breast, upper outer quadrant; R92.8 Other abnormal and inconclusive findings on diagnostic imaging of breast

== ENCOUNTER → 2021-10-23 | Outpatient (CLI) | payer MEDICARE ==
[~2021-10-23] MED LIST changes: +LOSA25TA13 PO; -LOSA25TA14 PO
== END ==
LOC: M RAD 07:56
PROVIDERS: ATTEND Surgery Vascular Surgery
DX: I65.23 Occlusion and stenosis of bilateral carotid arteries (principal)

== ENCOUNTER → 2022-02-15 | Outpatient (CLI) | payer MEDICARE | LOC: M WHC 08:36 | PROVIDERS: ATTEND Nurse Practitioner Women's Health | DX: R92.8 Other abnormal and inconclusive findings on diagnostic imaging of breast (principal) | CPT/HCPCS: 77065; G0279 ==

== ENCOUNTER → 2022-04-25 | Outpatient (CLI) | payer MEDICARE ==
[2022-04-25 10:42] LABS: HEMATOCRIT 42.1 % (36.0-47.0); MEAN CORPUSCULAR HGB CONC 33.3 g/dl (32.0-36.5); MEAN CORPUSCULAR VOLUME 96.1 fl (80.0-96.0); PLATELET COUNT, AUTOMATED 265 10^3/uL (150-450); RED BLOOD COUNT 4.38 10^6/uL (4.00-5.40); WHITE BLOOD COUNT 5.7 10^3/uL (4.0-10.0)
[2022-04-25 10:59] LABS: ALBUMIN 4.2 GM/DL (3.2-5.2); BILIRUBIN,TOTAL 0.6 MG/DL (0.2-1.0); CALCIUM LEVEL 10.5 MG/DL (8.8-10.2); CHOLESTEROL RISK RATIO 2.453 (<5); CREATININE FOR GFR 1.02 MG/DL (0.55-1.30); FREE T3 2.8 PG/ML (2.2-4.0); FREE T4 0.97 NG/DL (0.76-1.46); GLOMERULAR FILTRATION RATE 56.4 (>39); POTASSIUM SERUM 3.9 MEQ/L (3.5-5.1); THYROID STIMULATING HORMONE 2.39 uIU/ML (0.358-3.740); TOTAL PROTEIN 8.1 GM/DL (6.4-8.2)
[2022-04-25 11:09] LABS: HEMOGLOBIN A1c 7.7 %
[2022-04-25 11:30] LABS: MAU/CREAT RATIO 60.5 MCG/MG (0.0-30.0)
== END ==
LOC: M PLALAB 08:03
PROVIDERS: ATTEND Family Medicine
DX: E03.9 Hypothyroidism, unspecified (principal); E11.9 Type 2 diabetes mellitus without complications

== ENCOUNTER → 2022-09-03 | Outpatient (CLI) | payer MEDICARE | LOC: M RAD 09:01 | PROVIDERS: ATTEND Surgery Vascular Surgery | DX: I77.9 Disorder of arteries and arterioles, unspecified (principal) ==

== ENCOUNTER → 2022-11-19 | Outpatient (CLI) | payer MEDICARE ==
[2022-11-19 11:07] LABS: ALBUMIN 4.1 G/DL (3.2-5.2); ALKALINE PHOSPHATASE 65 U/L (46-116); ALT/SGPT 23 U/L (7.0-40); AST/SGOT 26 U/L (<34); BILIRUBIN,TOTAL 0.6 MG/DL (0.3-1.2); BLOOD UREA NITROGEN 24 MG/DL (9-23); CALCIUM LEVEL 9.9 MG/DL (8.3-10.6); CARBON DIOXIDE LEVEL 26 MMOL/L (20-31); CHLORIDE LEVEL 99 MMOL/L (98-107); CREATININE FOR GFR 0.89 MG/DL (0.55-1.30); GLOMERULAR FILTRATION RATE > 60.0 (>39); GLUCOSE, FASTING 215 MG/DL (74-106); POTASSIUM SERUM 4.9 MMOL/L (3.5-5.1); SODIUM LEVEL 135 MMOL/L (136-145); TOTAL PROTEIN 7.4 G/DL (5.7-8.2)
[2022-11-19 11:18] LABS: HEMOGLOBIN A1c 7.6 % (4.0-6.0)
[2022-11-19 12:30] LABS: FREE T3 3.1 PG/ML (2.3-4.2); THYROID STIMULATING HORMONE 2.718 uIU/ML (0.55-4.78)
[2022-11-19 12:31] LABS: FREE T4 1.03 NG/DL (0.89-1.76)
== END ==
LOC: M PLALAB 08:23
PROVIDERS: ATTEND Family Medicine
DX: E03.9 Hypothyroidism, unspecified (principal); E11.9 Type 2 diabetes mellitus without complications

== ENCOUNTER → 2023-05-06 | Outpatient (CLI) | payer MEDICARE | LOC: M WHC 10:56 | PROVIDERS: ATTEND Surgery Vascular Surgery | DX: I65.22 Occlusion and stenosis of left carotid artery (principal) ==

== ENCOUNTER → 2023-11-25 | Outpatient (CLI) | payer MEDICARE | LOC: M RAD 11:45 | PROVIDERS: ATTEND Physician Assistant | DX: I65.23 Occlusion and stenosis of bilateral carotid arteries (principal) ==

== ENCOUNTER → 2023-12-09 | Outpatient (CLI) | payer MEDICARE ==
[2023-12-09 11:05] LABS: BASO # 0.1 10^3/uL (0.0-0.2); BASO % 0.8 % (0.0-1.0); EOS # 0.2 10^3/uL (0.0-0.5); EOS % 2.6 % (0.0-3.0); HEMATOCRIT 40.2 % (36.0-47.0); HEMOGLOBIN 13.2 g/dl (12.0-15.5); LYMPH # 2.5 10^3/uL (1.5-5.0); LYMPH % 29.4 % (24.0-44.0); MEAN CORPUSCULAR HEMOGLOBIN 31.7 pg (27.0-33.0); MEAN CORPUSCULAR HGB CONC 32.8 g/dl (32.0-36.5); MEAN CORPUSCULAR VOLUME 96.6 fl (80.0-96.0); MONO # 0.8 10^3/uL (0.0-0.8); MONO % 9.4 % (2.0-8.0); NEUTROPHILS # 4.9 10^3/uL (1.5-8.5); NEUTROPHILS % 57.7 % (36.0-66.0); PLATELET COUNT, AUTOMATED 399 10^3/uL (150-450); RED BLOOD COUNT 4.16 10^6/uL (4.00-5.40); WHITE BLOOD COUNT 8.5 10^3/uL (4.0-10.0)
[2023-12-09 11:23] LABS: HEMOGLOBIN A1c 7.1 % (4.0-6.0)
[2023-12-09 11:30] LABS: ALBUMIN 3.8 G/DL (3.2-5.2); BILIRUBIN,TOTAL 0.4 MG/DL (0.3-1.2); CALCIUM LEVEL 9.9 MG/DL (8.3-10.6); CHOLESTEROL RISK RATIO 2.42 (<5); GLOMERULAR FILTRATION RATE 57.5 (>39); HDL CHOLESTEROL 63.8 MG/DL (>40); LDL CHOLESTEROL 67.4 MG/DL (<100); NON-HDL-C 91.2 MG/DL; POTASSIUM SERUM 4.3 MMOL/L (3.5-5.1); TOTAL PROTEIN 7.4 G/DL (5.7-8.2)
[2023-12-09 11:31] LABS: FREE T4 1.19 NG/DL (0.89-1.76)
[2023-12-09 11:32] LABS: THYROID STIMULATING HORMONE 2.435 uIU/ML (0.55-4.78)
[2023-12-09 11:48] LABS: CREATININE, URINE 320.1 MG/DL; MAU/CREAT RATIO 46.2 MCG/MG (0.0-30.0)
== END ==
LOC: M PLALAB 08:04
PROVIDERS: ATTEND Family Medicine
DX: E03.9 Hypothyroidism, unspecified (principal); E11.9 Type 2 diabetes mellitus without complications

== ENCOUNTER → 2024-10-22 | Outpatient (CLI) | payer MEDICARE | LOC: M WHC 08:04 | PROVIDERS: ATTEND Family Medicine | DX: Z12.31 Encounter for screening mammogram for malignant neoplasm of breast (principal); R92.323 Mammographic fibroglandular density, bilateral breasts ==

== ENCOUNTER → 2024-12-07 | Outpatient (CLI) | payer MEDICARE ==
[2024-12-07 10:35] LABS: BASO # 0.1 10^3/uL (0.0-0.2); BASO % 1.1 % (0.0-1.0); EOS # 0.2 10^3/uL (0.0-0.5); EOS % 3.2 % (0.0-3.0); HEMATOCRIT 41.3 % (36.0-47.0); HEMOGLOBIN 13.4 g/dl (12.0-15.5); LYMPH # 2.3 10^3/uL (1.5-5.0); LYMPH % 31.6 % (24.0-44.0); MEAN CORPUSCULAR HEMOGLOBIN 31.5 pg (27.0-33.0); MEAN CORPUSCULAR HGB CONC 32.4 g/dl (32.0-36.5); MEAN CORPUSCULAR VOLUME 96.9 fl (80.0-96.0); MONO # 0.6 10^3/uL (0.0-0.8); MONO % 8.6 % (2.0-8.0); NEUTROPHILS % 55.4 % (36.0-66.0); PLATELET COUNT, AUTOMATED 302 10^3/uL (150-450); RED BLOOD COUNT 4.26 10^6/uL (4.00-5.40); WHITE BLOOD COUNT 7.3 10^3/uL (4.0-10.0)
[2024-12-07 11:22] LABS: CREATININE, URINE 192.8 MG/DL
[2024-12-07 11:23] LABS: HEMOGLOBIN A1c 6.9 % (4.0-6.0)
[2024-12-07 11:25] LABS: MAU/CREAT RATIO 31.1 MCG/MG (0.0-30.0)
[2024-12-07 11:28] LABS: BILIRUBIN,TOTAL 0.5 MG/DL (0.3-1.2); CALCIUM LEVEL 9.7 MG/DL (8.3-10.6); CHOLESTEROL RISK RATIO 2.34 (<5); CREATININE FOR GFR 1.04 MG/DL (0.55-1.30); FREE T3 2.8 PG/ML (2.3-4.2); FREE T4 1.26 NG/DL (0.89-1.76); GLOMERULAR FILTRATION RATE 54.8 (>39); HDL CHOLESTEROL 70.7 MG/DL (>40); LDL CHOLESTEROL 72.5 MG/DL (<100); NON-HDL-C 95.3 MG/DL; THYROID STIMULATING HORMONE 3.279 uIU/ML (0.55-4.78); TOTAL PROTEIN 7.7 G/DL (5.7-8.2)
== END ==
LOC: M PLALAB 07:02
PROVIDERS: ATTEND Family Medicine
DX: E11.9 Type 2 diabetes mellitus without complications (principal)

== ENCOUNTER → 2025-01-19 | Outpatient (CLI) | payer MEDICARE | LOC: M RAD 08:51 | PROVIDERS: ATTEND Family Medicine | DX: Z12.2 Encounter for screening for malignant neoplasm of respiratory organs (principal); F17.211 Nicotine dependence, cigarettes, in remission; R91.1 Solitary pulmonary nodule; I70.0 Atherosclerosis of aorta; I25.10 Atherosclerotic heart disease of native coronary artery without angina pectoris ==

== ENCOUNTER → 2025-02-24 | Outpatient (CLI) | payer MEDICARE | LOC: M WUC 11:06 | PROVIDERS: ATTEND Nurse Practitioner Family | DX: R05.9 Cough, unspecified (principal) ==